=== PATIENT | female | born 1945 | race Caucasian/White ===

== ENCOUNTER 2017-02-08 16:35 | Outpatient (CLI) | payer MEDICARE ==
[2017-02-08 18:02] LABS: Hematocrit 41.4 % (36.0-47.0); Red Blood Cell (RBC) Count 4.42 mill/uL (4.20-5.40); White Blood Cell (WBC) Count 7.7 thou/uL (4.8-10.8)
[2017-02-08 18:30] LABS: Anion Gap 12 mmol/L (10-20); BUN (Urea Nitrogen) 10 mg/dL (9.8-20.1); Calc. Creatinine Clearance 0 mL/min (70-130); Calcium 8.9 mg/dL (7.8-10.44); Carbon Dioxide 33 mmol/L (23-31); Chloride 101 mmol/L (98-107); Estimated GFR-MDRD 77
--- NOTE | 2017-02-09 12:01 | EKG ---
Test Reason : Blood Pressure : / mmHG Vent. Rate : 074 BPM Atrial Rate : 074 BPM P-R Int : 154 ms QRS Dur : 100 ms QT Int : 408 ms P-R-T Axes : 033 062 044 degrees QTc Int : 452 ms Normal sinus rhythm Normal ECG When compared with ECG of 12-FEB-2014 17:07, No significant change was found Confirmed by DR. Nikunj BRADLEY (3) on 02/09/2017 12:00:44 PM Referred By: RADHA Confirmed By:DR. Nikunj BRADLEY
== END 2017-02-08 16:36 | disposition home or self-care (01) ==
LOC: LABBT 16:35
PROVIDERS: ATTEND Orthopaedic Surgery
DX: Z01.818 Encounter for other preprocedural examination (principal); M23.91 Unspecified internal derangement of right knee
CPT/HCPCS: 80048; 85027; 93005; 93010

== ENCOUNTER 2017-02-17 07:38 | Day surgery (SDC) | payer MEDICARE ==
[2017-02-08 17:05] VITALS: BMI 31.4
--- NOTE | 2017-02-16 09:26 | HP ---
DATE OF ADMISSION: 02/17/2017 HISTORY OF PRESENT ILLNESS: Patient is a 72-year-old female with a several month history of pain an d locking sensation in her right knee, which seemed to develop after twisting her knee [place] airport and it was also aggravated by traveling to see her grandchild tasha adair. She has had persistent symptoms despite rest, restriction of activities, anti-inflammatory medic ations, and a cortisone injection. She has had no previous knee problems. She is only able to obta in an MRI scan, because of the presence of metallic otic implants. PAST MEDICAL HISTORY: The patient is otherwise in good health. She has history of osteoarthritis, acid reflux and hormone replacement. CURRENT MEDICATIONS: Include Climara, Nexium, p.r.n. Xanax, Celebrex, and Voltaren topical gel. ALLERGIES: She has no known allergies. FAMILY HISTORY/SOCIAL HISTORY/REVIEW OF SYSTEMS: Otherwise unremarkable. PHYSICAL EXAMINATION: GENERAL: Reveals a healthy female. HEENT: Unremarkable. NECK: Supple. CHEST: Clear. HEART: Regular rate and rhythm. ABDOMEN: Soft, nontender. PELVIC/RECTAL/BREAST: Exams are deferred. EXTREMITIES: Pertinent findings related to the right knee, there is puffiness, no definite effusion . There is tenderness over the lateral joint line. Range of motion is 0-105 degrees. There is a s light right antalgic gait. There is no instability. There is pain with Vonnie's maneuver. NEUROVASCULAR: Exam is intact. Pulses are 2+. X-RAY FINDINGS: X-rays of the right knee reveal mild degenerative changes with reasonable joint spa ce remaining. IMPRESSION: Internal derangement of right knee, possible lateral meniscal tear, possible aggravatio n of degenerative joint disease. PLAN: Arthroscopy right knee with possible partial meniscectomy and/or debridement and shaving. Th e nature of the surgery, length of recovery, and potential complications such as infection, loss of motion, incomplete relief, neurovascular injury, thromboembolic phenomena, post-traumatic degenerati ve arthritis, recurrent tear and need for additional treatment or repeat surgery have been discussed in detail.
[2017-02-17] MEDS ORDERED: Fentanyl 100 MCG/2 ML VIAL ONE ×2 (08:23→10:59)
[2017-02-17] MEDS ORDERED: Bupivacaine PF 0.5% 30 ML VIAL ONE (08:24)
[2017-02-17] MEDS ORDERED: CEFAZOLIN/Water 2 GM/20 ML SYRINGE ONE (08:33)
[2017-02-17] MEDS ORDERED: Propofol 200 MG/20 ML VIAL ONE (09:07)
[2017-02-17] MEDS ORDERED: diphenhydrAMINE 50 MG/ML VIAL ONE (09:07)
[2017-02-17] MEDS ORDERED: Metoclopramide HCl 10 MG/2 ML VIAL ONE (09:07)
[2017-02-17] MEDS ORDERED: Ondansetron HCl/PF 4 MG/2 ML Vial ONE (09:07)
[2017-02-17] MEDS ORDERED: Dexamethasone 20 MG/5 ML VIAL ONE (09:07)
[2017-02-17] MEDS ORDERED: Lidocaine 1% PF 5 ML VIAL ONE (09:07)
[2017-02-17] MEDS ORDERED: Lidocaine 2% w/Epinephrine 1:200K 20 ML VIAL ONE (09:45)
--- NOTE | 2017-02-17 10:50 | OP ---
DATE OF PROCEDURE: 02/17/2017 SURGEON: Anthony Nicolas M.D. ANESTHESIA: General. PREOPERATIVE DIAGNOSES: Lateral meniscal tear and degenerative joint disease, right knee. POSTOPERATIVE DIAGNOSES: Lateral meniscal tear and degenerative joint disease, right knee. PROCEDURE: Arthroscopy of right knee with partial lateral meniscectomy and debridement and shaving. OPERATIVE FINDINGS: Examination under anesthesia revealed the knee to be stable. At arthroscopy, t here was moderate effusion and moderate diffuse synovitis. There was slight grade I and early grade II changes of the patella. No areas needing shaving. There was some degeneration within the media l meniscus, but no tears and some early grade II changes in the weightbearing surface of the medial femoral condyle, which is mild. ACL was intact. There was complete maceration of most of the entir e body of the lateral meniscus and significant degenerative changes of the lateral femoral condyle a nd medial tibial plateau, each measuring at least 1 x 1 cm. This was more extensive than was appare nt on preoperative x-rays. If she develops progressive symptoms, she may ultimately require total k nee replacement. NARRATIVE REPORT: After satisfactory anesthesia was induced in supine position, the patient was zena jonelle in a leg sanchez and prepped and draped in the routine manner. The right leg was elevated, exsan guinated with an Esmarch bandage, and the tourniquet inflated to 300 mmHg. Donna arthroscope was introduced into the anterolateral portal, probe through an anteromedial portal, and inflow and outfl ow accomplished through the scope using the Towanda arthroscopy pump. Arthroscopy was carried out a nd the above findings were noted. All findings were documented with the video printer and hard copi es were made. Medial femoral condyle was debrided with a motorized shaver. Lateral meniscus was de brided with a motorized shaver and basket forceps intermittently interchanging camera and instrument s between the anterolateral and anteromedial portals for best visualization. Portion of the medial femoral condyle, lateral tibial plateau were also shaved. A significant portion of the lateral meni scus removed, but there was still intact rim of approximately 2-3 mm, which was stable to probing. The knee was then copiously irrigated through the scope and all instruments were then withdrawn. A mixture of 30 mL of 0.5% plain Marcaine and 20 mL of 2% lidocaine with epinephrine was injected. A 30 mL was placed in the knee joint and an additional 20 mL injected about the portal sites. The por alicia sites were closed with 3-0 nylon. A sterile bulky compressive dressing was applied and the tour niquet deflated after 27 minutes. The foot promptly pinked up and the patient was awakened and take n to the recovery room in stable condition. There were no apparent intraoperative complications. T he estimated blood loss was negligible. The patient will be discharged home in satisfactory condition. She was instructed in ice, elevation , use of crutches or walker, and home exercise program by the Physical Therapy Department. She was given written wound care instructions and a prescription for tramadol for pain, 60 tablets with 1 re fill. She will be rechecked in my office in 10-14 days or sooner if there are any problems prior to that time.
[2017-02-17] MEDS ORDERED: traMADol HCl 50 MG TAB ONE (11:58)
== END 2017-02-17 12:26 | disposition home or self-care (01) ==
LOC: SDC 07:38
PROVIDERS: ATTEND Orthopaedic Surgery
PROC: 0SBC4ZZ Excision of Right Knee Joint, Percutaneous Endoscopic Approach (ICD-10-PCS; principal; 2017-02-17)
DX: S83.281A Other tear of lateral meniscus, current injury, right knee, initial encounter (principal); M17.11 Unilateral primary osteoarthritis, right knee; K21.9 Gastro-esophageal reflux disease without esophagitis; F17.200 Nicotine dependence, unspecified, uncomplicated; F41.9 Anxiety disorder, unspecified; E78.5 Hyperlipidemia, unspecified; Z79.82 Long term (current) use of aspirin; Z79.890 Hormone replacement therapy; Z79.899 Other long term (current) drug therapy; Z88.1 Allergy status to other antibiotic agents; Z90.49 Acquired absence of other specified parts of digestive tract; Z90.710 Acquired absence of both cervix and uterus; Z98.890 Other specified postprocedural states
CPT/HCPCS: 29881; 96374; 97139; G8978; G8979; G8980; J0131; J1100; J1200; J2001; J2405; J2704; J2765; J3010; S0020

== ENCOUNTER 2017-05-07 18:18 | Emergency (ER) | payer MEDICARE ==
--- NOTE | 2017-05-07 19:37 | CT ---
CT HEAD WITHOUT CONTRAST 05/07/17 HISTORY: Head injury. Headache. Ventricles are of normal size and position. No evidence of hemorrhage. No evidence of mass or infarct . IMPRESSION: No acute abnormality. POS: [facility]
== END 2017-05-07 20:18 | disposition home or self-care (01) ==
LOC: SCSER 18:18
DX: S00.83XA Contusion of other part of head, initial encounter (principal); W22.8XXA Striking against or struck by other objects, initial encounter
CPT/HCPCS: 70450

== ENCOUNTER 2017-09-22 20:30 | Outpatient (CLI) | payer MEDICARE | END 2017-09-22 20:31 | disposition home or self-care (01) | LOC: SLEEPLAB 20:30 | PROVIDERS: ATTEND Internal Medicine | DX: G47.33 Obstructive sleep apnea (adult) (pediatric) (principal); G47.10 Hypersomnia, unspecified; K21.9 Gastro-esophageal reflux disease without esophagitis; I10 Essential (primary) hypertension; R29.818 Other symptoms and signs involving the nervous system; E66.9 Obesity, unspecified; Z68.31 Body mass index [BMI] 31.0-31.9, adult | CPT/HCPCS: 95810 ==

== ENCOUNTER → 2017-10-13 | Outpatient (CLI) | payer MEDICARE | LOC: SLEEPLAB 19:30 | PROVIDERS: ATTEND Internal Medicine Pulmonary Disease | DX: G47.33 Obstructive sleep apnea (adult) (pediatric) (principal); G47.10 Hypersomnia, unspecified; K21.9 Gastro-esophageal reflux disease without esophagitis; E66.9 Obesity, unspecified; R06.83 Snoring | CPT/HCPCS: 95811 ==

== ENCOUNTER 2017-12-08 15:30 | Outpatient (CLI) | payer MEDICARE | END 2017-12-08 15:31 | disposition home or self-care (01) | LOC: BICMAMMO 15:30 | PROVIDERS: ATTEND Obstetrics & Gynecology | DX: Z12.31 Encounter for screening mammogram for malignant neoplasm of breast (principal); R92.1 Mammographic calcification found on diagnostic imaging of breast; Z80.3 Family history of malignant neoplasm of breast | CPT/HCPCS: 77063; 77067 ==

== ENCOUNTER 2018-03-08 18:43 | Emergency (ER) | payer MEDICARE | END 2018-03-08 19:39 | disposition home or self-care (01) | LOC: SCSER 18:43 | DX: H66.92 Otitis media, unspecified, left ear (principal); M19.90 Unspecified osteoarthritis, unspecified site; K21.9 Gastro-esophageal reflux disease without esophagitis; E78.5 Hyperlipidemia, unspecified; I10 Essential (primary) hypertension; Z79.899 Other long term (current) drug therapy | CPT/HCPCS: 99282 ==

== ENCOUNTER 2018-03-22 22:47 | Emergency (ER) | payer MEDICARE ==
[2018-03-22] MEDS ORDERED: Ketorolac Tromethamine 30 MG/ML VIAL ONE (23:43)
--- NOTE | 2018-03-22 23:51 | RAD ---
RIGHT ANKLE THREE VIEWS: 03/22/18 HISTORY: Ankle injury. There is soft tissue swelling present. I do not see any signs of fracture. Arthritic changes of the m id foot are present. No ankle joint effusion is seen. IMPRESSION: No evidence of fracture. POS: [facility]
--- NOTE | 2018-03-22 23:53 | RAD ---
RIGHT FOOT THREE VIEWS: 03/22/18 HISTORY: Foot injury. There is a marked hallux valgus deformity of the first metatarsophalangeal joint. There is an acute a ppearing obliquely oriented distal fifth metatarsal shaft fracture with some slight foreshortening. T here are arthritic changes in the tarsal bone region. IMPRESSION: Distal fifth metatarsal shaft fracture. POS: [facility]
== END 2018-03-23 00:10 | disposition home or self-care (01) ==
LOC: SCSER 22:47
DX: S92.351A Displaced fracture of fifth metatarsal bone, right foot, initial encounter for closed fracture (principal); M19.90 Unspecified osteoarthritis, unspecified site; K21.9 Gastro-esophageal reflux disease without esophagitis; I10 Essential (primary) hypertension; E78.5 Hyperlipidemia, unspecified; Z79.899 Other long term (current) drug therapy; X50.9XXA Other and unspecified overexertion or strenuous movements or postures, initial encounter
CPT/HCPCS: 96372; J1885

== ENCOUNTER 2018-08-03 09:42 | Outpatient (CLI) | payer MEDICARE ==
--- NOTE | 2018-08-03 10:05 | RAD ---
EXAM: Chest 2 views: HISTORY: Dyspnea COMPARISON: 10/29/2005 FINDINGS: There is a normal-sized cardiomediastinal silhouette. There is no evidence of consolidation, mass, or pleural effusion. Degenerative changes are seen in the spine. IMPRESSION: No evidence of acute cardiopulmonary disease
== END 2018-08-03 09:43 | disposition home or self-care (01) ==
LOC: RAD 09:42
PROVIDERS: ATTEND Internal Medicine Pulmonary Disease
DX: R06.00 Dyspnea, unspecified (principal)
CPT/HCPCS: 71046

== ENCOUNTER 2018-09-01 13:11 | Observation (INO) | payer MEDICARE ==
[~2018-09-01 13:11] MED LIST: ISOVUE-370 76%-LOCM 1 ML ONE
--- NOTE | 2018-09-01 13:42 | RAD ---
EXAM: Single view of the chest HISTORY: Shortness of breath and dyspnea COMPARISON: 02/12/2014 FINDINGS: Single view of the chest shows a normal sized cardiomediastinal silhouette. There is no eriberto dence of consolidation, mass, or pleural effusion. The bones are unremarkable. IMPRESSION: No evidence of acute cardiopulmonary disease
[2018-09-01 13:47] LABS: #Eosinphils 0.4 thou/uL (0.0-0.7); #Lymphocytes 1.4 thou/uL (1.20-3.40); #Monocytes 0.6 thou/uL (0.11-0.59); %Basophils 0.1 % (0.0-1.0); %Eosinophils 4.9 % (0.0-10.0); %Lymphocytes 19.5 % (21.0-51.0); %Monocytes 7.8 % (0.0-10.0); %Neutrophils 67.7 % (42.0-75.0); Hemoglobin 13.3 g/dL (12.0-16.0); Mean Corpuscular HGB CONC 33.7 g/dL (32.0-36.0); Mean Corpuscular Hemoglobin 31.6 pg (27.0-31.0); Mean Corpuscular Volume 93.7 fL (78.0-98.0); Mean Platelet Volume 7.3 fL (7.4-10.4); Platelet Count 205 thou/uL (130-400); RBC Distribution Width 13.8 % (11.5-14.5); White Blood Cell (WBC) Count 7.4 thou/uL (4.8-10.8)
[2018-09-01 14:10] LABS: ALT (SGPT) 13 U/L (8-55); AST (SGOT) 21 U/L (5-34); Albumin 3.9 g/dL (3.4-4.8); Alkaline Phosphatase 109 U/L (40-150); Anion Gap 15 mmol/L (10-20); BUN (Urea Nitrogen) 13 mg/dL (9.8-20.1); Bilirubin, Total 0.5 mg/dL (0.2-1.2); Calc. Creatinine Clearance 0 mL/min (70-130); Calcium 7.7 mg/dL (7.8-10.44); Carbon Dioxide 26 mmol/L (23-31); Chloride 104 mmol/L (98-107); Estimated GFR-MDRD 68; Globulin 2.8 g/dL (2.4-3.5); Glucose 107 mg/dL (83-110); Potassium 3.6 mmol/L (3.5-5.1); Protein, Total 6.7 g/dL (6.0-8.3); Sodium 141 mmol/L (136-145)
[2018-09-01 15:09] LABS: PTT 32.4 SEC (22.9-36.1); Prothrombin Time 12.9 SEC (12.0-14.7)
--- NOTE | 2018-09-01 15:10 | CT ---
EXAM: CTA of the chest HISTORY: Shortness of breath and left arm tingling COMPARISON: None TECHNIQUE: Multiple contiguous axial images were obtained a CTA of the chest with contrast per pulmon roge embolism protocol. 3-D oblique MIP reformats and direct coronal reformats were performed. FINDINGS: HEART: Normal in size without focal cardiac abnormality. PULMONARY ARTERIES: Evaluation of the pulmonary arteries is limited secondary to poor timing of the c ontrast bolus. Normal in caliber without filling defects to suggest pulmonary emboli. MEDIASTINUM: No hilar or mediastinal lymphadenopathy. There is a small hiatal hernia. LUNGS: No focal infiltrates or masses. PLEURAL SPACE: No pleural effusion or pneumothorax. CHEST WALL SOFT TISSUES: Unremarkable VISUALIZED OSSEOUS STRUCTURES: Degenerative changes are seen in the spine. There are remote healed ri ght rib fractures. VISUALIZED SUBDIAPHRAGMATIC STRUCTURES: Unremarkable IMPRESSION: No evidence of pulmonary thromboembolism
[2018-09-01] MEDS ORDERED: Aspirin Chewable 81 MG TAB ONE (16:38)
[2018-09-01 17:19] LABS: Troponin I 0.021 ng/mL (< 0.028)
[2018-09-01 18:48] VITALS: BMI 35.6
[2018-09-01 19:55] LABS: Troponin I Less than 0.010 ng/mL (< 0.028)
[2018-09-01] MEDS ORDERED: PROVENTIL INHALER 6.7 G (200 INHALATIONS) INH PRN (20:06)
[2018-09-01] MEDS ORDERED: Non-Formulary Item 1 EACH (Budesonide-Formoterol [Symbicort 160-4.5] 1 PUFF) INH PRN (20:06)
[2018-09-01] MEDS ORDERED: Ondansetron PF 4 MG/2 ML Vial IVP PRN (20:08)
[2018-09-01] MEDS ORDERED: Ondansetron ODT 4 MG TAB PO PRN (20:08)
[2018-09-01] MEDS ORDERED: Acetaminophen 325 MG TAB PO PRN (20:08)
[2018-09-01] MEDS ORDERED: Mometasone/Formoterol 120 PUFF INHALER INH PRN (20:11)
[2018-09-01] MEDS: CeleCOXIB 100 MG CAP PO SCH (20:46)
[2018-09-01] MEDS: Famotidine 20 MG TAB PO SCH (20:46)
[2018-09-01] MEDS ORDERED: Rosuvastatin 5 MG TAB PO SCH (21:00)
[2018-09-01] MEDS ORDERED: ALPRAZolam 0.5 MG TAB PO SCH (21:00)
--- NOTE | 2018-09-02 01:52 | HP ---
PRIMARY CARE PHYSICIAN: Shahzad Looney MD CHIEF COMPLAINT: Shortness of breath, chest tightness, and left arm numbness and tingling. HISTORY OF PRESENT ILLNESS: Ms. Montana is a 73-year-old female with past medical history of osteoarthritis, gastroesophageal reflux disease, hypertension, hyperlipidemia, asthma, and carpal tunnel syndrome, who had presented to [facility] earlier today after she had experienced some worsening shortness of breath with ambulation. She states that the symptoms have been on and off over the last several weeks; however, they were worse this morning. She had denied any fever, chills, any chest pain, palpitations, abdominal pain, nausea, or vomiting. However, did report some chest tightness when she was having symptoms and she stated that this tightness radiating up to left side of her jaw. She states that this feeling had resolved prior to arrival. She also complains of a left arm numbness and tingling over the last several weeks as well. She states that she has been under the direct care of Dr. Pulido and an orthopedic surgeon as outpatient, and they have diagnosed her with osteoarthritis of her spine and carpal tunnel of the left wrist. She states that she sees Dr. Gunter, workers' compensation claims examiner, who had recently diagnosed her with asthma. She states that she had recently been started on oral prednisone taper and she finished this about 3 weeks ago. She states since then, she had denied any cough or wheezing. However, she states that this shortness of breath and chest tightness had slowly progressed. During her initial workup, CTA was performed, however was negative for any pulmonary thromboembolism at this time. A portable chest x-ray was also performed and showed no evidence of acute cardiopulmonary disease. Serial troponins were obtained and found to be negative x3. BNP was also checked and it was normal at 18.0. Other lab work was essentially unremarkable. An echocardiogram and a nuclear medicine stress test were ordered and are currently pending at this time. REVIEW OF SYSTEMS: All other systems reviewed and found to be negative unless mentioned in the HPI. PAST MEDICAL HISTORY: Asthma, hypertension, hyperlipidemia, gastroesophageal reflux disease, osteoarthritis, carpal tunnel syndrome on the left wrist. PAST SURGICAL HISTORY: Right knee, bilateral ear surgery, cholecystectomy, hernia repair, and hysterectomy. PSYCHIATRIC HISTORY: None. SOCIAL HISTORY: The patient denies any alcohol, tobacco, or illicit drug use. KNOWN ALLERGIES: Macrolides, which cause nausea. CURRENT HOME MEDICATIONS: 1. Acetaminophen 650 mg p.o. q.4 hours as needed for pain. 2. Nexium 40 mg p.o. at bedtime. 3. Estradiol 0.025 mg patch q.7 days. 4. Meclizine 25 mg p.o. q.6 hours as needed for dizziness. 5. Albuterol sulfate HFA inhaler 2 puff inhalation q.4 hours as needed for wheezing or shortness of breath. 6. Alprazolam 0.5 mg p.o. at bedtime. 7. Amlodipine 5 mg p.o. daily. 8. Budesonide formoterol 160/4.5 one puff inhalation b.i.d. p.r.n. shortness of breath. 9. Celebrex 200 mg p.o. b.i.d. 10. Singulair 10 mg p.o. daily. 11. Rosuvastatin 5 mg p.o. at bedtime. 12. Triamterene/hydrochlorothiazide 37.5/25 mg p.o. daily. PHYSICAL EXAMINATION: VITAL SIGNS: BP 130/61, pulse 87, respirations 18, temperature 97.7 degrees Fahrenheit, O2 saturation 94% on room air. GENERAL: The patient is awake, alert, and oriented x3. She is currently sitting up in bed and in no acute distress at this time. Family friend is sitting up at bedside. HEENT: Atraumatic, normocephalic. Pupils are round and reactive to light. Extraocular muscles intact. Moist mucous membranes noted. NECK: Soft and supple. No JVD. Trachea midline. CARDIOVASCULAR: Positive S1 and S2. Regular rate and rhythm. No murmur auscultated. RESPIRATORY: Coarse breath sounds heard in bilaterally lung andrews, no wheezing appreciated. ABDOMEN: Soft and nontender. Bowel sounds present. MUSCULOSKELETAL: Strength 5+ bilaterally upper and lower extremities. Moves all extremities equal. Pedal and radial pulses palpable and 2+ bilaterally. Trace edema noted in lower extremities. Positive Tinel's, left wrist. NEUROLOGIC: Cranial nerves II through XII grossly intact. No focal deficits noted. Speech intact and normal. Gait not assessed. SKIN: Warm, dry, and intact. No rashes. No ulceration noted. PSYCHIATRIC: Good mood and affect. However, the patient appears slightly anxious at times. LABORATORY DATA: WBC 7.4, RBC 4.20, hemoglobin 13.3, platelets 205. Sodium 141, potassium 3.6, anion gap 15, BUN 13, creatinine 0.83, estimated GFR 68, glucose 107, AST 21, ALT 13. Troponin less than 0.010. BNP 18.0. DIAGNOSTIC IMAGING: CTA of chest with and without contrast showed no evidence of pulmonary thromboembolism at this time. Portable chest x-ray showed no evidence of acute cardiopulmonary disease. ASSESSMENT AND PLAN: 1. Dyspnea on exertion, the patient's workup thus far is essentially unremarkable, this could likely be secondary to underlying asthma. However, we will check a stress test and an echocardiogram in the morning. The patient will be placed on DuoNeb treatments and she will resume her home regimen at this time. 2. History of hypertension, currently stable at this time. Continue home regimen. 3. Hyperlipidemia. Continue home statin therapy. 4. Numbness and tingling in the left arm, the patient with positive Tinel's and a diagnosis of left carpal tunnel, which is likely the cause of her symptoms. She is already under the care of Dr. Pulido and an outside orthopedic surgeon. She was recommended to follow up as outpatient for further management. 5. History of gastroesophageal reflux disease. The patient will be continued on proton pump inhibitor at this time and symptoms monitored. 6. Deep venous thrombosis and gastrointestinal prophylaxis. CODE STATUS: Full code. DISPOSITION: Pending further workup and clinical findings. Job ID: [id number]
[2018-09-02 06:14] LABS: #Basophils 0.1 thou/uL (0.0-0.2); #Eosinphils 0.4 thou/uL (0.0-0.7); #Lymphocytes 1.5 thou/uL (1.20-3.40); #Monocytes 0.5 thou/uL (0.11-0.59); #Neutrophils 3.1 thou/uL (1.40-6.50); %Basophils 0.9 % (0.0-1.0); %Eosinophils 7.2 % (0.0-10.0); %Lymphocytes 26.1 % (21.0-51.0); %Monocytes 9.7 % (0.0-10.0); %Neutrophils 56.1 % (42.0-75.0); Hemoglobin 12.3 g/dL (12.0-16.0); Mean Corpuscular HGB CONC 33.1 g/dL (32.0-36.0); Mean Corpuscular Volume 93.7 fL (78.0-98.0); Mean Platelet Volume 7.6 fL (7.4-10.4); Platelet Count 199 thou/uL (130-400); RBC Distribution Width 13.9 % (11.5-14.5); Red Blood Cell (RBC) Count 3.96 mill/uL (4.20-5.40); White Blood Cell (WBC) Count 5.6 thou/uL (4.8-10.8)
[2018-09-02 06:21] LABS: Anion Gap 15 mmol/L (10-20); BUN (Urea Nitrogen) 11 mg/dL (9.8-20.1); Calc. Creatinine Clearance 100 mL/min (70-130); Calcium 7.7 mg/dL (7.8-10.44); Carbon Dioxide 26 mmol/L (23-31); Cardiac Risk 5.1 (Less than 4.5); Chloride 104 mmol/L (98-107); Cholesterol 183 mg/dl (< 200 Desired); Estimated GFR-MDRD 73; Glucose 83 mg/dL (83-110); HDL Cholesterol 36 mg/dL (>60 Neg Risk); LDL Cholesterol, Calculated 122 mg/dL; Sodium 142 mmol/L (136-145); Triglycerides 124 mg/dL (Less than 150)
[2018-09-02 06:26] LABS: Potassium 2.8 mmol/L (3.5-5.1)
[2018-09-02] MEDS ORDERED: ALPRAZolam 0.5 MG TAB PO PRN (07:35)
[2018-09-02] MEDS ORDERED: Potassium Chloride 20 MEQ TAB PO SCH (07:45)
[2018-09-02] MEDS ORDERED: Aspirin 325 MG TAB PO SCH (09:00)
[2018-09-02] MEDS ORDERED: Triamterene/Hydrochlorothiazide 37.5 mg/25 mg Tablet PO SCH (09:00)
[2018-09-02] MEDS ORDERED: Enoxaparin Sodium 40 MG/0.4 ML SYRINGE SC SCH (09:00)
[2018-09-02] MEDS ORDERED: Amlodipine 5 MG TAB PO SCH (09:00)
[2018-09-02] MEDS ORDERED: Montelukast Sodium 10 mg Tablet PO SCH (09:00)
[2018-09-02] MEDS ORDERED: Magnesium 2 GM/50 ML 2 GM in Premix Bag 1 BAG IVPB SCH (09:15)
[2018-09-02] MEDS ORDERED: Regadenoson 0.4 MG/5 ML SYRINGE ONE (09:56)
[2018-09-02] MEDS: CeleCOXIB 100 MG CAP PO SCH (10:49)
[2018-09-02] MEDS: Famotidine 20 MG TAB PO SCH (10:50)
--- NOTE | 2018-09-02 11:03 | NM ---
NM Cardiac Stress W EF WF History: [Chest pain. Dyspnea on exertion] Comparison: None. Findings: Stress and rest performed after the intravenous administration of 32.9 and 10.6 mCi technet ium 99m sestamibi, respectively. Adequate left ventricular uptake of radiotracer. No scar or ischemia. Normal wall motion. Calculated ejection fraction is 67%. Impression: Normal nuclear medicine cardiac stress test and ejection fraction.
[2018-09-02 12:46] VITALS: BP 126/72; TEMP 97.7
[2018-09-02 13:53] LABS: Potassium 3.7 mmol/L (3.5-5.1)
--- NOTE | 2018-09-03 11:18 | EKG ---
Test Reason : SOB Blood Pressure : / mmHG Vent. Rate : 109 BPM Atrial Rate : 109 BPM P-R Int : 132 ms QRS Dur : 078 ms QT Int : 352 ms P-R-T Axes : 010 -04 014 degrees QTc Int : 474 ms Sinus tachycardia Abnormal ECG Confirmed by DR. Nikunj BRADLEY (3) on 09/03/2018 11:18:38 AM Referred By: Confirmed By:DR. Nikunj BRADLEY
== END 2018-09-02 15:39 | disposition home or self-care (01) ==
LOC: ERS 13:11 → 2SW 18:04
PROVIDERS: ADMIT Emergency Medicine; ATTEND Emergency Medicine
DX: R06.09 Other forms of dyspnea (principal); R07.89 Other chest pain; R20.0 Anesthesia of skin; R20.2 Paresthesia of skin; K21.9 Gastro-esophageal reflux disease without esophagitis; I10 Essential (primary) hypertension; E78.5 Hyperlipidemia, unspecified; J45.909 Unspecified asthma, uncomplicated; M47.819 Spondylosis without myelopathy or radiculopathy, site unspecified; G56.02 Carpal tunnel syndrome, left upper limb; Z88.1 Allergy status to other antibiotic agents; Z79.899 Other long term (current) drug therapy
CPT/HCPCS: 71045; 71275; 78452; 80048; 80061; 83735; 83880; 84132; 84484 ×2; 85025; 85610; 85730; 93005; 93017; 94760; 96365; 96372; 97139; 99285; A9500; G0378 ×2; 36415; 80053; 84443; J1650; J2785; J3475; Q9966

== ENCOUNTER 2018-10-12 07:23 | Day surgery (SDC) | payer MEDICARE ==
[2018-10-11 12:35] VITALS: BMI 35.4
--- NOTE | 2018-10-12 10:08 | CT ---
CT-GUIDED LUMBAR MYELOGRAM CT LUMBAR SPINE WITH CONTRAST: (CT LUMBAR MYELOGRAM) DATE: 10/12/2018 HISTORY: 73-year-old female with neurogenic claudication and lumbar spinal stenosis. COMPARISON: None TECHNIQUE: Signed informed consent obtained. Patient placed prone on CT table. Skin over lower back prepared and draped in usual sterile fashion. 25-gauge needle used to apply buffered lidocaine superficially. 22-gauge spinal needle advanced from left paramedian approach, at the L5-S1 interlaminar space. Upon brisk return of clear CSF, a total of 10 mL of CSF was slowly removed. A total of 10 mL of Isovue-M 200 was injected intrathecally. Needle was removed. Patient tolerated the procedure well. No complica tions. Patient was taken off the CT scanner, and her body was alternatively rotated on stretcher to allow good distribution of intrathecal contrast material. Patient was placed back on CT scanner supin e, and axial scan was performed from upper T11 through mid sacrum. Coronal and sagittal reconstructions. FINDINGS: There are 5 nonrib-bearing lumbar-type vertebrae. Vertebral body heights are maintained. There is a m ild (when patient is supine) right lateral curvature with apex at T11-12 (the curvature may be worse when the patient stands). T12-L1: Moderate degenerative disc disease with moderate disc space narrowing, anterior endplate scle rosis and osteophytosis, and anterior vacuum disc phenomenon. Mild diffuse disc bulge. No central or neural foraminal stenosis. T12-L1: Normal L1-2: Conus medullaris terminates at upper L2. Minimal disc bulge. Otherwise normal. L2-3: Disc space maintained. Mild disc bulge slightly indents the ventral surface of the thecal sac. Minimal central stenosis. No right neural foraminal stenosis. Minimal left neural foraminal stenosis. L3-4: Moderate disc space narrowing with vacuum disc phenomenon. Mild to moderate diffuse disc bulge indents the ventral surface of the thecal sac. Mild to moderate ligamentum flavum thickening. Moderate right facet DJD including vacuum joint phenomenon. Mild left facet DJD. Mild to moderate rig ht neural foraminal stenosis. Mild left neural foraminal stenosis. Mild central spinal canal stenosis. Posterior epidural fat pad. Mild-moderate thecal sac stenosis. L4-5: Severe bilateral facet DJD with significant bony hypertrophy, and prominent vacuum joint phenom enon, cause a grade 1 anterolisthesis of L4 on L5. Moderate right-sided disc space narrowing along the concavity of the counter curvature. Moderate right neural foraminal stenosis. Mild to moderate le ft neural foraminal stenosis. Moderate ligamentum flavum thickening. Mild central spinal canal stenosis. Posterior epidural fat pad. Mild-moderate thecal sac stenosis. L5-S1: Mild disc space narrowing. Severe right facet DJD. Mild left facet DJD. No central or neural f oraminal stenosis. IMPRESSION: 1.) At least a mild dextroscoliosis centered at lower thoracic spine. 2) lumbar spondylosis including high-grade degenerative disc disease at T11-12 and L3-4, and severe f acet osteoarthrosis at lower levels. 3) grade 1 spondylolisthesis at L4-5 due to severe facet osteoarthrosis. 4) there are mild to moderate degrees of central spinal canal stenosis and neural foraminal stenosis at certain levels, but no severe stenosis is identified. However, it is unknown whether or not more severe degrees of stenosis occurs when the patient is standing, and whether the grade 1 spondylolisth esis becomes worse when the patient is standing.
== END 2018-10-12 10:15 | disposition home or self-care (01) ==
LOC: RAD 07:23
PROVIDERS: ATTEND Neurological Surgery
PROC: B02B1ZZ Computerized Tomography (CT Scan) of Spinal Cord using Low Osmolar Contrast (ICD-10-PCS; principal; 2018-10-12)
DX: M48.062 Spinal stenosis, lumbar region with neurogenic claudication (principal); M47.816 Spondylosis without myelopathy or radiculopathy, lumbar region; M51.34 Other intervertebral disc degeneration, thoracic region; M51.35 Other intervertebral disc degeneration, thoracolumbar region; M51.36 Other intervertebral disc degeneration, lumbar region; M51.37 Other intervertebral disc degeneration, lumbosacral region; G56.00 Carpal tunnel syndrome, unspecified upper limb; M19.90 Unspecified osteoarthritis, unspecified site; K21.9 Gastro-esophageal reflux disease without esophagitis; E66.9 Obesity, unspecified; J45.909 Unspecified asthma, uncomplicated; I10 Essential (primary) hypertension; E78.5 Hyperlipidemia, unspecified; Z68.35 Body mass index [BMI] 35.0-35.9, adult; Z98.890 Other specified postprocedural states; Z88.5 Allergy status to narcotic agent; Z88.1 Allergy status to other antibiotic agents; Z79.899 Other long term (current) drug therapy
CPT/HCPCS: 72133; 77002

== ENCOUNTER 2018-11-30 05:45 | Day surgery (SDC) | payer MEDICARE ==
[2018-11-09 15:49] VITALS: BMI 32.9
[2018-11-09 16:41] LABS: Anion Gap 13 mmol/L (10-20); BUN (Urea Nitrogen) 14 mg/dL (9.8-20.1); Calc. Creatinine Clearance 71 mL/min (70-130); Calcium 9.9 mg/dL (7.8-10.44); Carbon Dioxide 30 mmol/L (23-31); Chloride 103 mmol/L (98-107); Estimated GFR-MDRD 53; Glucose 130 mg/dL (83-110); Potassium 4.5 mmol/L (3.5-5.1); Sodium 141 mmol/L (136-145)
--- NOTE | 2018-11-15 13:44 | HP ---
HISTORY: Ms. Montana is a very pleasant 73-year-old woman referred to us by Dr. Talon Pulido for left carpal tunnel syndrome. She has classic symptoms of carpal tunnel, which had been treated in the past with physical therapy, bracing, and still had substantial numbness, pain, and some atrophy of the thenar eminence. She hopes to move forward with surgery for this particular problem. PAST MEDICAL HISTORY: Significant for osteoarthritis and acid reflux. PAST SURGICAL HISTORY: Hysterectomy, right knee scope and herniorrhaphy. ALLERGIES: TO NORCO AND TRAMADOL. CURRENT MEDICATIONS: Spironolactone, estradiol, esomeprazole, alprazolam, Celebrex, meclizine, Crestor, and [id number] Tylenol. PHYSICAL EXAMINATION: GENERAL: The patient is alert and oriented x3. There is sensory disturbance over the first three digits of the left hand with some reduced superintendent horticulture and reduced muscle mass of the thenar eminence of the left hand. ASSESSMENT: Left carpal tunnel syndrome. PLAN: Dr. Mccord met with the patient, reviewed imaging, and advocated for left carpal tunnel release. He explained to the patient the risks, benefits, and alternatives to the procedure. The patient expressed understanding and elected to move forward with surgery as discussed. I do believe the patient is mentally competent and capable of making medical decisions for herself. We will move forward with surgery as planned. Job ID: [id number]
[2018-11-30] MEDS ORDERED: Lidocaine 1% w/Epinephrine 1:100K 20 ML VIAL ONE (06:19)
[2018-11-30] MEDS ORDERED: ceFAZolin Sodium (SDC) 2 GM/100 ML BAG ONE (06:27)
[2018-11-30] MEDS ORDERED: Midazolam HCl 2 mg/2 ml Vial ONE (06:45)
[2018-11-30] MEDS ORDERED: Fentanyl 100 MCG/2 ML VIAL ONE (06:53)
--- NOTE | 2018-11-30 08:27 | OP ---
DATE OF PROCEDURE: 11/30/2018 GARMENT STEAMER: Talon Jara PA-C. INDICATION: Pain. DIAGNOSIS: Carpal tunnel syndrome, left. PROCEDURES PERFORMED: Carpal tunnel release, left. ANESTHESIA: MAC and local. DESCRIPTION OF PROCEDURE: The patient was brought into the operating room and placed under general anesthesia. Her left arm was extended perpendicular to her body and prepped and draped at the level of the axilla. A linear incision was planned along the long axis of the 4th digit across the crease on the wrist. This area was prepped and draped and was infiltrated with Marcaine. Following an appropriate operative pause, the incision was created. A self-retaining retractor was placed. The carpal tunnel ligament was identified and subsequently incised. The incision was extended in both proximal and distal directions until the carpal tunnel elements were decompressed. The wound was irrigated. Hemostasis was maintained throughout. The wound was then closed in a single-layer technique. The procedure came to an end without known complication. Job ID: [id number]
== END 2018-11-30 10:24 | disposition home or self-care (01) ==
LOC: SDC 05:45
PROVIDERS: ATTEND Neurological Surgery
PROC: 01N50ZZ Release Median Nerve, Open Approach (ICD-10-PCS; principal; 2018-11-30)
DX: G56.02 Carpal tunnel syndrome, left upper limb (principal); K21.9 Gastro-esophageal reflux disease without esophagitis; M19.90 Unspecified osteoarthritis, unspecified site; Z79.899 Other long term (current) drug therapy; Z88.1 Allergy status to other antibiotic agents; Z88.5 Allergy status to narcotic agent
CPT/HCPCS: J0690; J2001; J2250; J3010

== ENCOUNTER 2019-04-24 12:11 | Outpatient (CLI) | payer MEDICARE ==
--- NOTE | 2019-04-24 12:55 | MMO ---
Bilateral MAMMO Bilat Screen [facility]. CLINICAL HISTORY: Patient is 74 years old and is seen for screening. The patient has no family history of breast cancer. The patient has no personal history of cancer. VIEWS: The views performed were: bilateral craniocaudal with tomosynthesis and bilateral mediolateral oblique with tomosynthesis. FILMS COMPARED: The present examination has been compared to prior imaging studies performed at [facility] on 06/14/2014, 09/17/2015, 10/13/2016 and 12/08/2017. This study has been interpreted with the assistance of computer-aided detection. MAMMOGRAM FINDINGS: There are scattered fibroglandular densities. There are no suspicious masses, suspicious calcifications, or new areas of architectural distortion. IMPRESSION: THERE IS NO MAMMOGRAPHIC EVIDENCE OF MALIGNANCY. A ROUTINE FOLLOW-UP MAMMOGRAM IN 1 YEAR IS RECOMMENDED. THE RESULTS OF THIS EXAM WERE SENT TO THE PATIENT. ACR BI-RADS Category 1 - Negative MAMMOGRAPHY NOTE: 1. A negative mammogram report should not delay a biopsy if a dominant of clinically suspicious mass is present. 2. Approximately 10% to 15% of breast cancers are not detected by mammography. 3. Adenosis and dense breasts may obscure an underlying neoplasm. Reported by: CARL GUZMAN MD Electonically Signed: [id number]
== END 2019-04-24 12:12 | disposition home or self-care (01) ==
LOC: BICMAMMO 12:11
PROVIDERS: ATTEND Internal Medicine
DX: Z12.31 Encounter for screening mammogram for malignant neoplasm of breast (principal)
CPT/HCPCS: 77063; 77067

== ENCOUNTER 2019-09-21 06:37 | Outpatient (CLI) | payer MEDICARE, OTHER ==
[2019-09-21 14:31] LABS: #Basophils 0.1 thou/uL (0.0-0.2); #Eosinphils 0.4 thou/uL (0.0-0.7); #Lymphocytes 1.5 thou/uL (1.20-3.40); #Monocytes 0.8 thou/uL (0.11-0.59); #Neutrophils 6.1 thou/uL (1.40-6.50); %Basophils 0.7 % (0.0-1.0); %Eosinophils 4.7 % (0.0-10.0); %Lymphocytes 16.8 % (21.0-51.0); %Monocytes 9.3 % (0.0-10.0); %Neutrophils 68.4 % (42.0-75.0); Hemoglobin 15.8 g/dL (12.0-16.0); Mean Corpuscular HGB CONC 34.3 g/dL (32.0-36.0); Mean Corpuscular Volume 99.2 fL (78.0-98.0); Mean Platelet Volume 7.5 fL (7.4-10.4); Platelet Count 217 thou/uL (130-400); RBC Distribution Width 12.6 % (11.5-14.5); Red Blood Cell (RBC) Count 4.65 mill/uL (4.20-5.40); White Blood Cell (WBC) Count 8.8 thou/uL (4.8-10.8)
[2019-09-21 14:33] LABS: Bacteria/HPF 2+ HPF (None Seen); Bilirubin Negative (Negative); Blood, Urine Trace (Negative); Clarity Clear (Clear); Glucose, Urine (Dipstick) Normal (Negative); Leukocyte Negative Leu/uL (Negative); Nitrite Negative (Negative); Protein, Urine (Dipstick) Negative (Neg-Trace); RBC/HPF 0-3 HPF (0-3); Urobilinogen Normal mg/dL (Less than 2)
[2019-09-21 14:46] LABS: INR-International Normal Ratio 0.9; Prothrombin Time 11.8 sec (12.0-14.7)
[2019-09-21 14:50] LABS: Anion Gap 15 mmol/L (10-20); BUN (Urea Nitrogen) 14 mg/dL (9.8-20.1); Calc. Creatinine Clearance 0 mL/min (70-130); Calcium 9.5 mg/dL (7.8-10.44); Carbon Dioxide 29 mmol/L (23-31); Chloride 100 mmol/L (98-107); Estimated GFR-MDRD 56; Glucose 86 mg/dL (83-110); Potassium 4.2 mmol/L (3.5-5.1); Sodium 140 mmol/L (136-145)
[2019-09-22 11:17] LABS: SARS-CoV-2 MS2 Positive; SARS-CoV-2 N Gene Negative; SARS-CoV-2 S Gene Negative; SARS-CoV-2 orf1ab Negative
== END 2019-09-21 06:38 | disposition home or self-care (01) ==
LOC: LABBT 06:37
PROVIDERS: ATTEND Orthopaedic Surgery
DX: Z01.818 Encounter for other preprocedural examination (principal); Z11.59 Encounter for screening for other viral diseases; M17.31 Unilateral post-traumatic osteoarthritis, right knee
CPT/HCPCS: 80048; 81001; 85025; 85610; 87081; 87086; 93005; U0003; 87635; 93010

== ENCOUNTER 2019-09-21 12:30 | Inpatient (IN) | payer MEDICARE ==
--- NOTE | 2019-09-21 08:52 | HP ---
HISTORY OF PRESENT ILLNESS: The patient is a 74-year-old female with a long history of progressive problems with her right knee. She has had progressive problems with weightbearing and had progressive symptoms despite rest, restriction of activities, steroid injections, and use of anti-inflammatory medication including Celebrex. She had arthroscopy of her right knee with partial lateral meniscectomy and debridement and shaving on March 05, which gave her partial relief, but she has had progressive problems, which is now interfering with day-to-day activities including walking, getting dressed, and sleeping. PAST MEDICAL HISTORY: The patient is otherwise in generally good health. She does have significant degenerative arthritis of her lumbar spine and also her left hip and in both feet. These are currently being managed conservatively. She has history of sleep apnea and asthma. CURRENT MEDICATIONS: Include: 1. Spironolactone. 2. Climara. 3. Esomeprazole. 4. Alprazolam. 5. Celebrex. 6. Meclizine. 7. Crestor. 8. Amlodipine. 9. Flexeril. 10. Gabapentin. 11. Tramadol. 12. Hydrocodone. 13. Zofran. ALLERGIES: SHE HAS NO DEFINITE ALLERGIES, BUT HYDROCODONE CAUSES VOMITING, BUT SHE CAN TOLERATE THIS WHEN TAKING IT WITH ZOFRAN. FAMILY HISTORY: Otherwise unremarkable. SOCIAL HISTORY: Otherwise unremarkable. REVIEW OF SYSTEMS: Otherwise unremarkable. PHYSICAL EXAMINATION: GENERAL: Reveals a healthy female. HEENT: Unremarkable. NECK: Supple. CHEST: Clear. HEART: Regular rate and rhythm. ABDOMEN: Soft, nontender. PELVIC: Deferred. RECTAL: Deferred. BREASTS: Deferred. EXTREMITIES: Pertinent findings related to the right knee. There is mild valgus deformity. There is tenderness and crepitus over the lateral joint line. There are healed arthroscopy puncture sites. Range of motion is 0 to 130 degrees with crepitus. There is no instability. Neurovascular exam is intact. Distal pulses are 1+. There is slight right antalgic gait. DIAGNOSTIC STUDIES: X-rays of the right knee reveal lateral joint space narrowing with progression from previous x-rays. IMPRESSION: 1. Degenerative arthritis, right knee. 2. History of hypertension. 3. History of lumbar spondylosis. 4. History of sleep apnea. PLAN: Right total knee replacement. The nature of the surgery, length of recovery, and potential complications such as infection, loss of motion, incomplete relief, delayed wound healing, neurovascular injury, thromboembolic phenomena, possible transfusion, need for revision have been discussed in detail. Job ID: [id number]
[2019-09-25] MEDS ORDERED: Vancomycin 1.5 GRAM/300 ML BAG 1.5 GM/300 ML BAG ONE (05:57)
[2019-09-25] MEDS ORDERED: Sodium Chloride 0.9% 100 ML ONE (05:57)
[2019-09-25] MEDS ORDERED: Tranexamic Acid 1,000 MG/10 ML VIAL ONE ×2 (05:57→08:36)
[2019-09-25] MEDS ORDERED: Fentanyl 100 MCG/2 ML VIAL ONE ×2 (06:10→06:25)
[2019-09-25] MEDS ORDERED: Midazolam HCl 2 mg/2 ml Vial ONE (06:25)
[2019-09-25] MEDS ORDERED: Lidocaine 1% w/Epinephrine 1:100K 20 ML VIAL ONE (06:35)
[2019-09-25] MEDS ORDERED: Bupivacaine 0.25% HCL 30 ML VIAL ONE (06:35)
[2019-09-25] MEDS ORDERED: Scopolamine 1.5 mg/72 hour Patch ONE (06:42)
[2019-09-25] MEDS ORDERED: Ondansetron PF 4 MG/2 ML Vial IVP PRN (06:50)
[2019-09-25] MEDS ORDERED: Ropivacaine HCl/PF 250 ML in Premix Bag 1 BAG NERVE BLCK SCH (06:50)
[2019-09-25] MEDS ORDERED: Promethazine HCl 25 MG/ML VIAL IM PRN ×2 (06:50→08:45)
[2019-09-25] MEDS ORDERED: Acetaminophen 500 MG TAB PO PRN (06:50)
[2019-09-25] MEDS ORDERED: traMADol HCl 50 MG TAB PO PRN ×2 (06:50→08:56)
[2019-09-25] MEDS ORDERED: Zolpidem Tartrate 5 MG TAB PO PRN ×2 (06:50→08:56)
[2019-09-25] MEDS ORDERED: Fentanyl 100 MCG/2 ML VIAL IV PRN (06:51)
[2019-09-25] MEDS ORDERED: Promethazine HCl 25 MG/ML VIAL ONE (07:01)
[2019-09-25] MEDS ORDERED: Tranexamic Acid 1,000 MG in Sodium Chloride 0.9% 100 ML IVPB SCH ×2 (08:45→08:56)
[2019-09-25] MEDS ORDERED: Promethazine HCl 25 MG/ML VIAL SLOW IVP PRN ×2 (08:45→08:56)
[2019-09-25] MEDS ORDERED: Ondansetron HCl/PF 4 MG/2 ML Vial IVP PRN (08:45)
[2019-09-25] MEDS ORDERED: Mometasone 200 MCG/Formoterol 5 MCG 120 PUFF INHALER INH PRN (08:56)
[2019-09-25] MEDS ORDERED: oxyCODONE/Acetaminophen 5 mg/325 mg Tablet PO PRN ×2 (08:56)
[2019-09-25] MEDS ORDERED: Fentanyl 100 MCG/2 ML VIAL SLOW IVP PRN ×2 (08:56)
[2019-09-25] MEDS ORDERED: Meclizine HCl 12.5 MG TAB PO PRN (08:56)
[2019-09-25] MEDS ORDERED: Acetaminophen 325 MG TAB PO PRN (08:56)
[2019-09-25] MEDS ORDERED: Albuterol Sulfate 2.5 mg/3 ml Neb NEB PRN (08:56)
[2019-09-25] MEDS ORDERED: CeleCOXIB 100 MG CAP PO SCH (09:00)
[2019-09-25] MEDS ORDERED: Non-Formulary Item 1 EACH (Celecoxib [Celebrex] 200 MG) PO SCH (09:00)
[2019-09-25] MEDS ORDERED: ESTRADIOL 0.025 MG TD SCH (09:45)
[2019-09-25] MEDS: Sodium Chloride 0.9% 1,000 ML IV SCH ×2 (10:25→21:36)
--- NOTE | 2019-09-25 10:44 | OP ---
DATE OF PROCEDURE: 09/25/2019 MACHINE DEICER ELEMENT WINDER: Alexy Escalante PA-C ANESTHESIA: General plus adductor canal and sciatic nerve blocks. PREOPERATIVE DIAGNOSIS: Degenerative arthritis, right knee. POSTOPERATIVE DIAGNOSIS: Degenerative arthritis, right knee. PROCEDURE PERFORMED: Right total knee replacement with computer-assisted navigation with cemented Solomon Triathlon components (#3 femoral component, #3 primary tibial baseplate with 9 mm CS plastic insert, and A29 all-plastic patellar component). DESCRIPTION OF PROCEDURE: After satisfactory anesthesia was induced in supine position, sequential compression device was placed on the nonoperative leg throughout the procedure. The right leg was then prepped and draped in routine sterile fashion. The leg was elevated and exsanguinated with an Esmarch bandage and the tourniquet inflated to 300 mmHg. A gently curved medial parapatellar incision was made and carried down through subcutaneous tissues. Bleeding points were controlled with Bovie cautery. Medial parapatellar arthrotomy was performed. Patella was cut laterally and portions of the fat pad were excised for exposure. There was marked degenerative arthritis in the knee especially laterally with large areas of exposed bone. Meniscal remnants and osteophytes were removed. Using the appropriate guides and Artspace pinless navigation system, the distal femoral and proximal tibial articular surfaces were excised with an oscillating saw to accept the trial components. It was felt that a #3 femoral component, #3 tibial baseplate with 9 mm CS plastic insert gave appropriate size, fit, stability, and correction of the preoperative deformity. The patellar articular surface was excised to accept an all-plastic A29 patellar component. There was good range of motion and good patellar tracking. The trial components were removed. The knee was copiously irrigated with pulsatile lavage and the bony surfaces were thoroughly cleaned and dried. The permanent components were then cemented in a single stage using one package of cement premixed with 1 g of tobramycin powder. Excess cement was removed. There was again good fit and stability of the components. The knee was then copiously irrigated. The medial retinaculum and quadriceps mechanism were closed with interrupted #2 Vicryl and a running #2 Quill. Subcutaneous tissues were closed with a running 0 Quill suture and the skin closed with running subcuticular 3-0 Monoderm and SurgiSeal skin adhesive. A sterile bulky compressive dressing was applied. The tourniquet deflated after 60 minutes. The foot promptly pinked up. Sequential compression device was applied to the operated leg and she was awakened and taken to the recovery room in stable condition. There were no apparent intraoperative complications. The estimated blood loss was less than 100 mL. Job ID: [id number]
[2019-09-25 11:17] VITALS: BMI 32.9
[2019-09-25] MEDS: Aspirin 81 mg Enteric Coated Tablet PO SCH ×2 (11:35→20:21)
[2019-09-25] MEDS: CeleCOXIB 100 MG CAP PO SCH ×2 (11:53→20:23)
[2019-09-25] MEDS ORDERED: Ketorolac Tromethamine 30 MG/ML VIAL IVP SCH (12:00)
[2019-09-25] MEDS: CEFAZOLIN 2 GM in Premix Bag 1 BAG IVPB SCH ×2 (13:45→22:08)
[2019-09-25] MEDS ORDERED: Ondansetron PF 4 MG/2 ML Vial ONE (13:53)
[2019-09-25] MEDS ORDERED: Dexamethasone 20 MG/5 ML VIAL ONE (13:53)
[2019-09-25] MEDS ORDERED: Lidocaine 1% PF 5 ML VIAL ONE (13:53)
[2019-09-25] MEDS ORDERED: Bupivacaine HCl 0.5%/Epinephrine 1:200,000/PF 30 ml Vial ONE (13:53)
[2019-09-25] MEDS ORDERED: Ropivacaine 0.2% HCl/PF (40 MG/20 ML VIAL) ONE (13:53)
[2019-09-25] MEDS ORDERED: PROPOFOL 200 MG/20 ML VIAL ONE (13:53)
--- NOTE | 2019-09-25 13:54 | RAD ---
RIGHT KNEE 2 VIEWS: DATE: 09/25/2019. HISTORY: Total knee arthroplasty. FINDINGS: Tibial and femoral components appear radiographically normal. There is posterior patellar postoperat quinten change. There is soft tissue swelling and subcutaneous gas anteriorly. No acute fracture or dis location. IMPRESSION: Radiographic evidence of recent right total knee arthroplasty. POS: YARI
[2019-09-25] MEDS ORDERED: Vancomycin 1.5 GRAM/300 ML BAG 1.5 GM in Premix Bag 1 BAG IVPB SCH (18:00)
[2019-09-25] MEDS: Spironolactone 25 MG TAB PO SCH (18:24)
--- NOTE | 2019-09-25 18:27 | PDOC.HOSPP ---
- Subjective Encounter Date: 09/25/19 Encounter Time: 18:00 Subjective: Consult for med mgmt s/p R TKA. Hx of HTN, DJD, OA and IRON on nocturnal CPAP. No new complaints, CP or SOB. - Objective Vital Signs & Weight: Vital Signs (12 hours) Temp Pulse Resp BP Pulse Ox 09/25/19 10:25 97.1 F L 97 18 134/82 93 L Weight Weight 198 lb Additional Labs: Laboratory Tests 09/21/19 09/21/19 09/21/19 13:44 13:44 14:10 WBC 8.8 Hgb 15.8 Hct 46.2 Plt Count 217 Sodium 140 Potassium 4.2 Chloride 100 Carbon Dioxide 29 Anion Gap 15 BUN 14 Creatinine 0.97 Glucose 86 Calcium 9.5 COVID-19 PCR Not Detected EKG Reviewed by me: Yes (Sinus tachycardia in 100's, no acute changes) Hospitalist ROS - Medication Medications: Active Medications Generic Name Dose Route Start Last Admin Trade Name Freq PRN Reason Stop Dose Admin Aspirin 81 mg 09/25/19 09:00 09/25/19 11:35 Ecotrin PO Not Given BID JAY Celecoxib 200 mg 09/25/19 09:00 09/25/19 11:53 Celebrex PO 200 mg BID JAY Administration Cefazolin Sodium/Dextrose 2 gm 50 mls @ 100 mls/hr 09/25/19 14:00 09/25/19 13 :45 / Device IVPB 09/25/19 22:29 50 mls Q8HR JAY Administration Sodium Chloride 1,000 mls @ 100 mls/hr 09/25/19 08:56 09/25/19 10:25 Normal Saline 0.9% IV 1,000 mls .Q10H JAY Administration Sodium Chloride 10 ml 09/25/19 09:00 09/25/19 11:35 Flush - Normal Saline IVF Not Given Q12HR JAY - Exam General Appearance: NAD, awake alert Eye: PERRL, anicteric sclera ENT: normocephalic atraumatic, no oropharyngeal lesions Neck: supple, symmetric, no JVD, no thyromegaly, no lymphadenopathy Heart: RRR, no murmur, no gallops, no rubs, normal peripheral pulses Respiratory: CTAB, no wheezes, no rales, no ronchi, normal chest expansion Gastrointestinal: soft, non-tender, non-distended, normal bowel sounds, no palpable masses, no hepatomegaly Extremities: no cyanosis Extremities - other findings: R knee with surgical dressing in place Skin: normal turgor Neurological: cranial nerve grossly intact Neurological - other findings: RLE paresis due to nerve block Psychiatric: normal affect, A&O x 3 Hosp A/P (1) HTN (hypertension) Code(s): I10 - ESSENTIAL (PRIMARY) HYPERTENSION Status: Chronic Qualifiers: Hypertension type: essential hypertension Qualified Code(s): I10 - Essential (primary) hypertension Plan: Resume home BP regimen and monitor clinical response, PRN Hydralazine (2) Asthma Code(s): J45.909 - UNSPECIFIED ASTHMA, UNCOMPLICATED Status: Chronic Plan: Resume home MDI's, Symbicort (3) IRON (obstructive sleep apnea) Code(s): G47.33 - OBSTRUCTIVE SLEEP APNEA (ADULT) (PEDIATRIC) Status: Chronic Plan: Nocturnal CPAP (4) DJD (degenerative joint disease) Code(s): M19.90 - UNSPECIFIED OSTEOARTHRITIS, UNSPECIFIED SITE Status: Chronic Plan: Pain control, PT/OT for mobilization, Celebrex - Plan continue antibiotics, PT/OT, neonatal social worker, incentive spirometry, out of bed/ ambulate, DVT proph w/SCDs Stable currently Resume home BP regimen OOB with PT Continue peripheral nerve block Incentive spirometry AM lab: CBC Thank you for the consult. Will continue to follow with primary service.
[2019-09-25] MEDS: Amlodipine 5 MG TAB PO SCH (20:16)
[2019-09-25] MEDS: ALPRAZolam 0.5 MG TAB PO SCH (20:16)
[2019-09-25] MEDS: Rosuvastatin 5 MG TAB PO SCH (20:23)
[2019-09-25] MEDS: Montelukast Sodium 10 mg Tablet PO SCH (20:23)
[2019-09-25] MEDS ORDERED: Calcium Carbonate 500 MG ChewTAB PO SCH (22:30)
[2019-09-26] MEDS: Ondansetron PF 4 MG/2 ML Vial IVP PRN ×3 (04:09→21:16)
[2019-09-26] MEDS: oxyCODONE 5 MG TAB PO PRN ×4 (05:09→21:17)
[2019-09-26 05:43] LABS: Hemoglobin 12.9 g/dL (12.0-16.0); Mean Corpuscular HGB CONC 34.5 g/dL (32.0-36.0); Mean Corpuscular Hemoglobin 34.3 pg (27.0-31.0); Mean Corpuscular Volume 99.4 fL (78.0-98.0); Mean Platelet Volume 7.6 fL (7.4-10.4); Platelet Count 170 thou/uL (130-400); RBC Distribution Width 12.8 % (11.5-14.5); Red Blood Cell (RBC) Count 3.76 mill/uL (4.20-5.40); White Blood Cell (WBC) Count 13.9 thou/uL (4.8-10.8)
[2019-09-26] MEDS: traMADol HCl 50 MG TAB PO PRN ×3 (06:33→23:38)
[2019-09-26] MEDS: Sodium Chloride 0.9% 1,000 ML IV SCH ×2 (06:37→13:58)
[2019-09-26] MEDS: CeleCOXIB 100 MG CAP PO SCH ×2 (09:33→21:11)
[2019-09-26] MEDS: Aspirin 81 mg Enteric Coated Tablet PO SCH ×2 (09:34→21:11)
[2019-09-26] MEDS: Spironolactone 25 MG TAB PO SCH ×2 (09:34→17:09)
[2019-09-26] MEDS: Senokot S 8.6-50 MG TAB PO SCH ×2 (09:34→21:12)
[2019-09-26] MEDS: Multivitamin W/ Minerals 1 TAB PO SCH (09:34)
--- NOTE | 2019-09-26 19:09 | PDOC.HOSPP ---
- Subjective Encounter Date: 09/26/19 Encounter Time: 18:45 Subjective: f/u for HTN, Asthma and s/p R TKA POD #1. No new complaints and feeling ok overall. - Objective Vital Signs & Weight: Vital Signs (12 hours) Temp Pulse Resp BP Pulse Ox 09/26/19 15:30 97.6 F 93 20 119/68 95 09/26/19 11:30 97.4 F L 70 18 114/75 94 L 09/26/19 11:02 97.4 F L 70 18 114/75 94 L 09/26/19 07:51 97.6 F 91 16 126/81 92 L Weight Admit Weight 198 lb Weight 198 lb I&O: 09/25/19 09/26/19 09/27/19 06:59 06:59 06:59 Intake Total 2330 1200 Output Total 3125 Balance -795 1200 Result Diagrams: 09/26/19 05:32 Additional Labs: Laboratory Tests 09/21/19 09/21/19 09/21/19 13:44 13:44 14:10 WBC 8.8 Hgb 15.8 Hct 46.2 Plt Count 217 Sodium 140 Potassium 4.2 Chloride 100 Carbon Dioxide 29 Anion Gap 15 BUN 14 Creatinine 0.97 Glucose 86 Calcium 9.5 COVID-19 PCR Not Detected Hospitalist ROS - Medication Medications: Active Medications Generic Name Dose Route Start Last Admin Trade Name Freq PRN Reason Stop Dose Admin Acetaminophen 1,000 mg 09/25/19 06:50 09/25/19 20:33 Tylenol PO 1,000 mg Q6H PRN Administration Headache/Fever/MILD-MOD Pain Alprazolam 0.5 mg 09/25/19 21:00 09/25/19 20:16 Xanax PO 0.5 mg HS JAY Administration Amlodipine Besylate 2.5 mg 09/25/19 21:00 09/25/19 20:16 Norvasc PO 2.5 mg HS JAY Administration Aspirin 81 mg 09/25/19 09:00 09/26/19 09:34 Ecotrin PO 81 mg BID JAY Administration Celecoxib 200 mg 09/25/19 09:00 09/26/19 09:33 Celebrex PO 200 mg BID JAY Administration Ropivacaine 250 ml/ Device 250 mls @ 0 mls/hr 09/25/19 06:50 06/09/20 10:46 NERVE BLCK 09/27/19 06:51 250 mls INF JAY Administration As Directed Sodium Chloride 1,000 mls @ 100 mls/hr 09/25/19 08:56 09/26/19 13:58 Normal Saline 0.9% IV Not Given .Q10H JAY Iron/Minerals/Multivitamins 1 tab 09/26/19 09:00 09/26/19 09:34 Theragran M PO 1 tab DAILY JAY Administration Montelukast Sodium 10 mg 09/25/19 21:00 09/25/19 20:23 Singulair PO 10 mg HS JAY Administration Ondansetron HCl 4 mg 09/25/19 08:56 09/26/19 09:40 Zofran IVP 4 mg Q6H PRN Administration Nausea/Vomiting Oxycodone HCl 5 mg 09/25/19 07:17 09/26/19 05:09 Oxycodone Ir PO 5 mg Q4H PRN Administration PAIN (2-5) Oxycodone HCl 10 mg 09/25/19 07:18 09/26/19 14:23 Oxycodone Ir PO 10 mg Q4H PRN Administration PAIN (6-10) Pantoprazole Sodium 40 mg 09/25/19 21:00 09/25/19 20:23 Protonix PO 40 mg HS JAY Administration Rosuvastatin Calcium 5 mg 09/25/19 21:00 09/25/19 20:23 Crestor PO 5 mg HS JAY Administration Senna/Docusate Sodium 2 tab 09/26/19 09:00 09/26/19 09:34 Senokot S PO 2 tab BID JAY Administration Sodium Chloride 10 ml 09/25/19 09:00 09/26/19 09:40 Flush - Normal Saline IVF 10 ml Q12HR JAY Administration Spironolactone 50 mg 09/25/19 17:00 09/26/19 17:09 Aldactone PO 50 mg BID-WM JAY Administration Tramadol HCl 100 mg 09/25/19 06:50 09/26/19 17:10 Ultram PO 100 mg Q6H PRN Administration Moderate Pain 4-6 - Exam General Appearance: NAD, awake alert Eye: PERRL, anicteric sclera ENT: normocephalic atraumatic, no oropharyngeal lesions Neck: supple, symmetric, no JVD, no thyromegaly, no lymphadenopathy Heart: RRR, no murmur, no gallops, no rubs, normal peripheral pulses Heart - other findings: S1, S2 Respiratory: CTAB, no wheezes, no rales, no ronchi, normal chest expansion Gastrointestinal: soft, non-tender, non-distended, normal bowel sounds, no palpable masses Extremities: no cyanosis, no clubbing Extremities - other findings: R knee with surgical dressing in place Skin: normal turgor Neurological: cranial nerve grossly intact, no new deficit Musculoskeletal: normal tone, normal strength Psychiatric: normal affect, A&O x 3 Hosp A/P (1) HTN (hypertension) Code(s): I10 - ESSENTIAL (PRIMARY) HYPERTENSION Status: Chronic Qualifiers: Hypertension type: essential hypertension Qualified Code(s): I10 - Essential (primary) hypertension Plan: Stable, continue Norvasc/Aldactone (2) Asthma Code(s): J45.909 - UNSPECIFIED ASTHMA, UNCOMPLICATED Status: Chronic Plan: Continue Singulair/Dulera/Ventolin nebs (3) IRON (obstructive sleep apnea) Code(s): G47.33 - OBSTRUCTIVE SLEEP APNEA (ADULT) (PEDIATRIC) Status: Chronic Plan: Nocturnal CPAP (4) DJD (degenerative joint disease) Code(s): M19.90 - UNSPECIFIED OSTEOARTHRITIS, UNSPECIFIED SITE Status: Chronic - Plan PT/OT, public health social worker, incentive spirometry, out of bed/ambulate, DVT proph w/ SCDs Stable currently Resume home BP regimen OOB with PT Continue pain control with Oxycodone/Celebrex/Tramadol Incentive spirometry DVT ppx
[2019-09-26] MEDS: ALPRAZolam 0.5 MG TAB PO SCH (21:11)
[2019-09-26] MEDS: Rosuvastatin 5 MG TAB PO SCH (21:12)
[2019-09-26] MEDS: Montelukast Sodium 10 mg Tablet PO SCH (21:12)
[2019-09-26] MEDS: Amlodipine 5 MG TAB PO SCH (21:12)
[2019-09-26] MEDS: diphenhydrAMINE 25 MG CAP PO PRN (23:39)
[2019-09-27] MEDS: Sodium Chloride 0.9% 1,000 ML IV SCH (01:29)
[2019-09-27] MEDS: oxyCODONE 5 MG TAB PO PRN ×2 (06:07→09:51)
[2019-09-27] MEDS: Ondansetron PF 4 MG/2 ML Vial IVP PRN (06:08)
[2019-09-27] MEDS: Senokot S 8.6-50 MG TAB PO SCH (09:53)
[2019-09-27] MEDS: Spironolactone 25 MG TAB PO SCH (09:54)
[2019-09-27] MEDS: Aspirin 81 mg Enteric Coated Tablet PO SCH (09:54)
[2019-09-27] MEDS: CeleCOXIB 100 MG CAP PO SCH (09:54)
[2019-09-27] MEDS: Multivitamin W/ Minerals 1 TAB PO SCH (09:54)
[2019-09-27] MEDS: diphenhydrAMINE 25 MG CAP PO PRN (10:17)
[2019-09-27] MEDS: traMADol HCl 50 MG TAB PO PRN (13:16)
[2019-09-27 14:54] VITALS: BP 131/74; TEMP 96.1
== END 2019-09-27 15:49 | disposition home health service (06) | DRG 470 ==
LOC: INTOOBSV 09-25 05:45 → OBSVTOIN 09-25 05:45 → SJJU 09-25 05:45
PROVIDERS: ADMIT Orthopaedic Surgery; ATTEND Orthopaedic Surgery
PROC: 0SRC0J9 Replacement of Right Knee Joint with Synthetic Substitute, Cemented, Open Approach (ICD-10-PCS; principal; 2019-09-25)
PROC: 8E0YXBZ Computer Assisted Procedure of Lower Extremity (ICD-10-PCS; 2019-09-25)
DX: M17.11 Unilateral primary osteoarthritis, right knee (principal); I10 Essential (primary) hypertension; M47.816 Spondylosis without myelopathy or radiculopathy, lumbar region; E78.5 Hyperlipidemia, unspecified; G47.33 Obstructive sleep apnea (adult) (pediatric); J45.909 Unspecified asthma, uncomplicated; Z79.899 Other long term (current) drug therapy; Z88.5 Allergy status to narcotic agent; Z88.8 Allergy status to other drugs, medicaments and biological substances; Z99.89 Dependence on other enabling machines and devices; Z90.710 Acquired absence of both cervix and uterus
CPT/HCPCS: 36415; 85027; C1713; C1776; J0670; J0690; J1100; J2001; J2250; J2405; J2550; J2704; J2795; J3010; J3370; J3490; Q0163; S0020

== ENCOUNTER 2019-09-29 00:02 | Emergency (ER) | payer MEDICARE ==
[2019-09-29] MEDS ORDERED: Ondansetron PF 4 MG/2 ML Vial ONE ×3 (00:23→04:00)
[2019-09-29 00:54] LABS: #Eosinphils 0.1 thou/uL (0.0-0.7); #Lymphocytes 0.9 thou/uL (1.20-3.40); #Monocytes 0.8 thou/uL (0.11-0.59); #Neutrophils 9.6 thou/uL (1.40-6.50); %Basophils 0.1 % (0.0-1.0); %Eosinophils 1.1 % (0.0-10.0); %Lymphocytes 7.7 % (21.0-51.0); %Monocytes 6.6 % (0.0-10.0); %Neutrophils 84.5 % (42.0-75.0); Mean Corpuscular HGB CONC 34.4 g/dL (32.0-36.0); Mean Corpuscular Hemoglobin 34.1 pg (27.0-31.0); Mean Corpuscular Volume 99.2 fL (78.0-98.0); Mean Platelet Volume 7.8 fL (7.4-10.4); Platelet Count 197 thou/uL (130-400); RBC Distribution Width 12.5 % (11.5-14.5); Red Blood Cell (RBC) Count 3.82 mill/uL (4.20-5.40); White Blood Cell (WBC) Count 11.3 thou/uL (4.8-10.8)
[2019-09-29] MEDS ORDERED: Lorazepam 2 MG/ML VIAL ONE (01:11)
[2019-09-29 01:13] LABS: ALT (SGPT) 203 U/L (8-55); AST (SGOT) 175 U/L (5-34); Albumin 3.6 g/dL (3.4-4.8); Alkaline Phosphatase 318 U/L (40-110); Anion Gap 19 mmol/L (10-20); BUN (Urea Nitrogen) 13 mg/dL (9.8-20.1); Bilirubin, Total 2.5 mg/dL (0.2-1.2); Calc. Creatinine Clearance 0 mL/min (70-130); Calcium 9.3 mg/dL (7.8-10.44); Carbon Dioxide 26 mmol/L (23-31); Chloride 91 mmol/L (98-107); Estimated GFR-MDRD 71; Globulin 3.7 g/dL (2.4-3.5); Glucose 116 mg/dL (83-110); Lipase 16 U/L (8-78); Potassium 3.9 mmol/L (3.5-5.1); Protein, Total 7.3 g/dL (6.0-8.3); Sodium 132 mmol/L (136-145)
[2019-09-29 02:47] LABS: Bilirubin Negative (Negative); Blood, Urine Negative (Negative); Clarity Turbid (Clear); Glucose, Urine (Dipstick) Normal (Negative); Leukocyte 25 Leu/uL (Negative); Nitrite Negative (Negative); Protein, Urine (Dipstick) Negative (Neg-Trace); Urobilinogen Normal mg/dL (Less than 2); WBC/HPF 0-3 HPF (0-3)
[2019-09-29 02:49] LABS: Bacteria/HPF 1+ HPF (None Seen)
== END 2019-09-29 05:00 | disposition home or self-care (01) ==
LOC: ERS 00:02
DX: R74.0 Nonspecific elevation of levels of transaminase and lactic acid dehydrogenase [LDH] (principal); E78.5 Hyperlipidemia, unspecified; M19.90 Unspecified osteoarthritis, unspecified site; I10 Essential (primary) hypertension; J45.909 Unspecified asthma, uncomplicated
CPT/HCPCS: 80053; 81003; 81015; 83690; 85025; 93005; 96361; 96374; 96375; 96376; J2060; J2405

== ENCOUNTER 2019-10-25 06:52 | Day surgery (SDC) | payer MEDICARE ==
[2019-10-24 09:04] VITALS: BMI 32.9
[2019-10-25 08:03] VITALS: BP 108/76; TEMP 97.7
--- NOTE | 2019-10-25 09:42 | RAD ---
LUMBAR SPINE 2 VIEWS: Date: 10/25/2019 HISTORY: Lumbar radiculopathy, lumbar spinal stenosis. COMPARISON: Prior CT multimedia programmer film dated 10/12/2018. FINDINGS: Levoscoliosis of the lower lumbar vertebral column and dextroscoliosis of the upper lumbar/lower thor acic vertebral column with extensive disc osteophytosis and facet arthrosis. Very mild Grade I chioma listhesis of L4 on L5 which appears unchanged from prior study. No evidence for focal bone lesion, or acute fracture or dislocation. IMPRESSION: 1. Scoliosis. 2. Extensive disc osteophytosis and facet arthrosis, evidence for spondylosis. 3. Stable mild Grade I anterolisthesis of L4 on L5. POS: RRE
--- NOTE | 2019-10-25 09:47 | CT ---
Lumbar myelogram CT-guided CT lumbar spine with contrast HISTORY: Low back pain with left leg radiculopathy. Neurogenic claudication. COMPARISON: 10/12/2018. FINDINGS: After explaining the procedure and answering all questions, limited CT imaging lumbosacral junction was performed with patient prone. Sterile technique, buffered local anesthesia, CT guidance, and a posterior approach were used to care fully advance the tip of a 22-gauge spinal needle to the thecal sac at the L5-S1 level. A total of 10 cc of Isovue-200 M contrast was carefully instilled into the thecal sac. Needle was removed. Patie nt tolerated the procedure well and was eventually returned to the holding area in good condition for further monitoring. Patient was repositioned to supine for CT imaging. Images including the soft tissue show stable exophytic cyst at the lateral aspect of the right kidney . There is calcification within the arterial structures. Leftward convex rotatory scoliotic curvature of the lumbar spine is similar in appearance to the prev ious exam. Vertebral body heights are maintained. Disc space narrowing and mild posterior disc bulge at the T11-12 level of the lower thoracic spine ar e unchanged in appearance. T12-L1: Osteophytosis. Central canal and neural foramina are patent. L1-2: Disc space narrowing. Osteophytosis. Central canal and neural foramina are patent. L2-3:Disc space narrowing. Mild disc bulge and circumferential degenerative changes. Minimal central canal and left foraminal stenoses. Right neural foramen is patent. Stable appearance. L3-4: Near complete loss of disc space height. Gas disc phenomenon and minimal degenerative spondylol isthesis. Posterior osteophyte/disc complex and circumferential degenerative changes. Mild central canal and left foraminal stenoses and mild to moderate right foraminal stenosis are unchanged from th e previous exam. L4-5: Disc space narrowing. Spondylolisthesis 0.4 mm is stable. Mild disc subtle bulge. Prominent ost eophytosis and posterior ligament hypertrophy. Moderate stenosis of the central canal, moderate right and mild left foraminal stenoses are stable. L5-S1: Thecal sac is patent. Prominent hypertrophy of the facets. Central canal and neural foramina a re patent. IMPRESSION : Prominent arthritic changes throughout the lumbar spine are stable compared to the 10/12/2018 study. N o focal disc herniation or severe nerve root compression evident. No high-grade central canal stenosis. Atherosclerosis.
== END 2019-10-25 10:50 | disposition home or self-care (01) ==
LOC: RAD 06:52 → EDSTATUS 08:00 → RAD 10:50
PROVIDERS: ATTEND Neurological Surgery
DX: M47.26 Other spondylosis with radiculopathy, lumbar region (principal); M48.062 Spinal stenosis, lumbar region with neurogenic claudication; Q76.2 Congenital spondylolisthesis; M41.56 Other secondary scoliosis, lumbar region; M54.30 Sciatica, unspecified side; I70.90 Unspecified atherosclerosis; M25.78 Osteophyte, vertebrae; K21.9 Gastro-esophageal reflux disease without esophagitis; I10 Essential (primary) hypertension; E78.5 Hyperlipidemia, unspecified; M19.90 Unspecified osteoarthritis, unspecified site; J45.909 Unspecified asthma, uncomplicated; F41.9 Anxiety disorder, unspecified; G47.33 Obstructive sleep apnea (adult) (pediatric); Z79.82 Long term (current) use of aspirin; Z79.899 Other long term (current) drug therapy; Z88.1 Allergy status to other antibiotic agents; Z88.5 Allergy status to narcotic agent
CPT/HCPCS: 72100; 72132; 77002

== ENCOUNTER 2020-05-15 14:09 | Outpatient (CLI) | payer MEDICARE | END 2020-05-15 14:10 | disposition home or self-care (01) | LOC: BICMAMMO 14:09 | PROVIDERS: ATTEND Obstetrics & Gynecology | DX: Z12.31 Encounter for screening mammogram for malignant neoplasm of breast (principal); R92.8 Other abnormal and inconclusive findings on diagnostic imaging of breast | CPT/HCPCS: 76642; 77063; 77065; 77067; G0279 ==

== ENCOUNTER 2022-08-17 12:58 | Outpatient (CLI) | payer MEDICARE | END 2022-08-17 12:59 | disposition home or self-care (01) | LOC: BICMAMMO 12:58 | PROVIDERS: ATTEND Internal Medicine | DX: Z12.31 Encounter for screening mammogram for malignant neoplasm of breast (principal) | CPT/HCPCS: 77063; 77067 ==

== ENCOUNTER 2023-03-18 11:16 | Outpatient (CLI) | payer MEDICARE ==
[2023-03-18 13:32] LABS: #Basophils 0.1 10x3/uL (0.0-0.2); #Eosinphils 0.5 10x3/uL (0.0-0.5); #Monocytes 0.6 10x3/uL (0.0-1.1); #Neutrophils 4.6 10x3/uL (1.5-8.4); %Basophils 0.7 % (0.0-2.0); %Eosinophils 7.2 % (0.0-6.0); %Lymphocytes 14.2 % (18.0-47.0); %Neutrophils 68.5 % (40.0-75.0); Hematocrit 41.5 % (34.9-44.5); Hemoglobin 14.1 g/dL (12.0-15.5); Mean Corpuscular Hemoglobin 32.9 pg (27.0-33.0); Mean Corpuscular Volume 96.7 fl (81.6-98.3); Mean Platelet Volume 9.9 fl (7.4-10.4); Platelet Count 198 10x3/uL (150-450); RBC Distribution Width 13.7 % (11.5-14.5); Red Blood Cell (RBC) Count 4.29 10x6/uL (3.90-5.03); White Blood Cell (WBC) Count 6.7 10x3/uL (3.5-10.5)
[2023-03-18 13:55] LABS: Prothrombin Time 11.2 sec (9.5-12.1)
[2023-03-18 14:05] LABS: Anion Gap 18 mmol/L (10-20); BUN (Urea Nitrogen) 8 mg/dL (9.8-20.1); Calc. Creatinine Clearance 0 mL/min (70-130); Calcium 8.9 mg/dL (7.8-10.44); Carbon Dioxide 28 mmol/L (23-31); Chloride 98 mmol/L (98-107); Estimated GFR 71; Glucose 87 mg/dL (83-110); Sodium 140 mmol/L (136-145)
== END 2023-03-18 11:17 | disposition home or self-care (01) ==
LOC: LABBT 11:16
PROVIDERS: ATTEND Orthopaedic Surgery
DX: Z01.818 Encounter for other preprocedural examination (principal); M16.11 Unilateral primary osteoarthritis, right hip
CPT/HCPCS: 80048; 85025; 85610; 87081; 93005; 93010

== ENCOUNTER 2023-03-23 06:43 | Observation (INO) | payer MEDICARE ==
[2023-03-23] MEDS ORDERED: Sodium Chloride 0.9% 100 ML ONE ×2 (07:26→09:16)
[2023-03-23] MEDS ORDERED: Tranexamic Acid 1,000 MG/10 ML VIAL ONE (07:26)
[2023-03-23] MEDS ORDERED: Vancomycin (BATCH) 1.5 GM/300 ML BAG ONE (07:27)
[2023-03-23] MEDS ORDERED: Midazolam HCl 2 mg/2 ml Vial ONE (08:18)
[2023-03-23] MEDS ORDERED: Bupivacaine PF 0.5% 30 ML VIAL ONE ×2 (08:18→09:02)
[2023-03-23] MEDS ORDERED: fentaNYL 50 mcg/mL 1 mL Vial ONE ×3 (08:18→13:18)
[2023-03-23] MEDS ORDERED: Lidocaine 1% (PF) 30 ML VIAL ONE (08:18)
[2023-03-23] MEDS ORDERED: Acetaminophen 500 MG TAB ONE (08:28)
[2023-03-23] MEDS ORDERED: fentaNYL 50 mcg/mL 1 mL Vial SLOW IVP PRN (09:07)
[2023-03-23] MEDS ORDERED: Promethazine HCl 25 MG/ML VIAL IM PRN (09:07)
[2023-03-23] MEDS ORDERED: Zolpidem Tartrate 5 MG TAB PO PRN (09:07)
[2023-03-23] MEDS ORDERED: Ondansetron PF 4 MG/2 ML Vial IVP PRN (09:07)
[2023-03-23] MEDS ORDERED: traMADol HCl 50 MG TAB PO PRN ×2 (09:07)
[2023-03-23] MEDS ORDERED: Meclizine HCl 25 MG TAB PO PRN (09:08)
[2023-03-23] MEDS ORDERED: Non-Formulary Item 1 EACH (Acetaminophen [Tylenol] 325 MG Capsule) PO PRN (09:08)
[2023-03-23] MEDS ORDERED: ALPRAZolam 0.5 MG TAB PO PRN (09:08)
[2023-03-23] MEDS ORDERED: Albuterol 200 PUFF (6.7GM INHALER) INH PRN (09:08)
[2023-03-23] MEDS ORDERED: CEFAZOLIN 2 GM VIAL ONE (09:16)
[2023-03-23] MEDS ORDERED: PROPOFOL 20 ML ONE (09:20)
[2023-03-23] MEDS ORDERED: HYDROmorphone 2 MG/ML VIAL ONE (09:20)
[2023-03-23] MEDS ORDERED: Rocuronium Bromide 10 MG/ML (10ML VIAL) ONE ×2 (09:22→09:32)
[2023-03-23] MEDS ORDERED: Dexamethasone 20 MG/5 ML VIAL ONE ×2 (09:22→09:32)
[2023-03-23] MEDS ORDERED: Ondansetron PF 4 MG/2 ML Vial ONE ×2 (09:22→09:32)
[2023-03-23] MEDS ORDERED: fentaNYL PF 100 MCG/2 ML SYRINGE ONE ×2 (09:23→10:15)
[2023-03-23] MEDS ORDERED: PHENYLEPHRINE-NS 100 MCG/ML 10 ML SYRINGE ONE ×2 (09:32→10:49)
[2023-03-23] MEDS ORDERED: Glycopyrrolate 0.2 MG/ML 5 ML SYRINGE ONE ×2 (09:32→10:52)
[2023-03-23] MEDS ORDERED: NEOSTIGMINE 3 MG/3 ML SYR 3 MG/3 ML SYRINGE ONE ×2 (09:32→10:52)
[2023-03-23] MEDS ORDERED: PROPOFOL 200 MG/20 ML VIAL ONE (09:32)
[2023-03-23] MEDS ORDERED: Ketamine In 0.9 % NaCl 50 MG/5 ML SYRINGE ONE (09:58)
[2023-03-23] MEDS ORDERED: SUGAMMADEX SODIUM 200 MG/2 ML VIAL ONE ×2 (11:13→11:28)
[2023-03-23] MEDS: Sodium Chloride 0.9% 1,000 ML IV SCH ×2 (15:26→20:46)
[2023-03-23] MEDS: diphenhydrAMINE 25 MG CAP PO PRN ×2 (16:09→22:11)
[2023-03-23] MEDS: CEFAZOLIN 2 GM in Sodium Chloride 0.9% 100 ML IVPB SCH (16:11)
[2023-03-23 18:14] VITALS: BMI 32.9
[2023-03-23] MEDS: Spironolactone 25 MG TAB PO SCH (20:42)
[2023-03-23] MEDS: CeleCOXIB 100 MG CAP PO SCH (20:42)
[2023-03-23] MEDS: Aspirin 81 mg Enteric Coated Tablet PO SCH (20:46)
[2023-03-23] MEDS ORDERED: Rosuvastatin 5 MG TAB PO SCH (21:00)
[2023-03-23] MEDS ORDERED: Montelukast Sodium 10 mg Tablet PO SCH (21:00)
[2023-03-23] MEDS ORDERED: Amlodipine 5 MG TAB PO SCH (21:00)
[2023-03-23] MEDS: Acetaminophen 325 MG TAB PO PRN (22:45)
[2023-03-24] MEDS: CEFAZOLIN 2 GM in Sodium Chloride 0.9% 100 ML IVPB SCH (01:48)
[2023-03-24 05:07] LABS: Hemoglobin 11.9 g/dL (12.0-16.0); Mean Corpuscular Hemoglobin 33.2 pg (27.0-31.0); Mean Corpuscular Volume 97.8 fl (78.0-98.0); Mean Platelet Volume 10.1 fL (7.4-10.4); Platelet Count 162 10x3/uL (130-400); RBC Distribution Width 13.5 % (11.5-14.5); Red Blood Cell (RBC) Count 3.58 mill/uL (4.20-5.40); White Blood Cell (WBC) Count 11.4 10x3/uL (4.8-10.8)
[2023-03-24] MEDS: Sodium Chloride 0.9% 1,000 ML IV SCH (06:53)
[2023-03-24] MEDS ORDERED: Ferrous Gluconate 324 MG TAB PO SCH (08:00)
[2023-03-24 08:27] VITALS: BP 138/81; TEMP 97.9
[2023-03-24] MEDS ORDERED: Senokot S 8.6-50 MG TAB PO SCH (09:00)
[2023-03-24] MEDS ORDERED: Multivitamin W/ Minerals 1 TAB PO SCH (09:00)
[2023-03-24] MEDS: Spironolactone 25 MG TAB PO SCH (09:01)
[2023-03-24] MEDS: CeleCOXIB 100 MG CAP PO SCH (09:02)
[2023-03-24] MEDS: Aspirin 81 mg Enteric Coated Tablet PO SCH (09:03)
[2023-03-24] MEDS: Acetaminophen 325 MG TAB PO PRN (11:04)
[2023-03-26] MEDS ORDERED: FLU VACC QS2023(65UP)/MF59C/PF 60 MCG/0.5 ML SYRINGE IM ONE (09:00)
== END 2023-03-24 11:50 | disposition home or self-care (01) ==
LOC: SDC 06:43 → SJJU 15:11
PROVIDERS: ADMIT Orthopaedic Surgery; ATTEND Orthopaedic Surgery
PROC: 0SU Lower Joints, Supplement (ICD-10-PCS; principal; 2023-03-23)
DX: M16.11 Unilateral primary osteoarthritis, right hip (principal); J45.909 Unspecified asthma, uncomplicated; I10 Essential (primary) hypertension; E78.5 Hyperlipidemia, unspecified; K21.9 Gastro-esophageal reflux disease without esophagitis; Z88.5 Allergy status to narcotic agent; Z90.710 Acquired absence of both cervix and uterus; Z96.642 Presence of left artificial hip joint
CPT/HCPCS: 27130; 73502; 85027; 97110 ×2; 97116 ×2; 97530 ×2; 97535; C1713; C1776 ×2; J3010; J3370; 36415; J1100; J1170; J2001; J2250; J2405; J2704; J3490; S0020

== ENCOUNTER 2024-12-28 17:03 | Emergency (ER) | payer MEDICARE ==
[2024-12-28] MEDS ORDERED: Bacitracin 1 PK ONE (18:17)
[2024-12-28] MEDS ORDERED: Boostrix 0.5 ML (Tdap) VIAL (>/=7 yrs of age) ONE (18:19)
== END 2024-12-28 19:35 | disposition home or self-care (01) ==
LOC: ERS 17:03
DX: S09.90XA Unspecified injury of head, initial encounter (principal); S81.811A Laceration without foreign body, right lower leg, initial encounter; I10 Essential (primary) hypertension; W18.30XA Fall on same level, unspecified, initial encounter; Z23 Encounter for immunization
CPT/HCPCS: 70450; 72125; 90471; 90715